=== PATIENT | male | born 1930 | race Caucasian/White ===

== ENCOUNTER 2018-12-25 00:19 | Emergency (ER) | payer MEDICARE, BC ==
[2018-12-25] MEDS ORDERED: Bacitracin Oint 1 GM U/D Packet TOP ONE (00:53)
[2018-12-25] MEDS ORDERED: Lidocaine 1% with EPINEPHrine 1:100,000 50 ML MDV INFILT ONE (00:53)
--- NOTE | 2018-12-25 01:04 | EDM.PDOC ---
ED HPI GENERAL MEDICAL PROBLEM - General Chief Complaint: Head Injury Stated Complaint: FELL,LACERATION TO HEAD Time Seen by Provider: 12/25/18 00:53 Source of Information: Reports: Patient, Family History Limitations: Reports: No Limitations - History of Present Illness INITIAL COMMENTS - FREE TEXT/NARRATIVE: 88-year-old male was on the toilet at around 10:30 PM, 3 hours ago, when he was straining and then felt uncomfortable and lightheaded. He then felt "horrible", very nauseated and then passed out. He hit his right eyebrow on the floor sustaining a laceration. He woke up several minutes later, lightheaded and nauseated but fairly rapidly resolved. He did not have chest pain, shortness of breath, palpitations, and has no current symptoms. His vitals are stable. 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 Pain Score (Numeric/FACES): 1 - Related Data Allergies Allergy/AdvReac Type Severity Reaction Status Date / Time No Known Allergies Allergy Verified 12/25/18 00:22 Home Meds: Home Meds Aspirin 81 mg PO DAILY 12/25/18 [History] Ibuprofen 200 mg PO BID 12/25/18 [History] atorvaSTATin [Lipitor] 40 mg PO BEDTIME 12/25/18 [History] Past Medical History HEENT History: Reports: Cataract, Hard of Hearing, Impaired Vision Cardiovascular History: Reports: Afib, High Cholesterol Gastrointestinal History: Reports: Other (See Below) Other Gastrointestinal History: acid reflux Genitourinary History: Reports: BPH Musculoskeletal History: Reports: Arthritis Oncologic (Cancer) History: Reports: Squamous Cell Carcinoma Dermatologic History: Reports: Other (See Below) Other Dermatologic History: bruises easily - Infectious Disease History Infectious Disease History: Reports: Chicken Pox, Measles, Mumps, Rubella, Shingles - Past Surgical History HEENT Surgical History: Reports: Adenoidectomy, Cataract Surgery, Tonsillectomy GI Surgical History: Reports: Cholecystectomy, Colonoscopy, Hernia Repair/Other Neurological Surgical History: Reports: Laminectomy, Other (See Below) Other Neurological Surgeries/Procedures: 4th and 5th lumbar Social & Family History - Tobacco Use Smoking Status *Q: Never Smoker - Caffeine Use Caffeine Use: Reports: Coffee - Recreational Drug Use Recreational Drug Use: No ED ROS GENERAL - Review of Systems Review Of Systems: See Below Constitutional: Denies: Fever, Chills HEENT: Denies: Vision Change Respiratory: Denies: Shortness of Breath Cardiovascular: Denies: Chest Pain GI/Abdominal: Denies: Abdominal Pain, Nausea, Vomiting Neurological: Denies: Headache Psychiatric: Reports: No Symptoms ED EXAM, HEAD INJURY - Physical Exam Exam: See Below Exam Limited By: No Limitations General Appearance: Alert, No Apparent Distress Head: Other (Patient has a 2-1/2 cm transverse laceration, somewhat irregular above the right eyebrow) Eyes: Bilateral Eye: EOMI Neck: Non-Tender Respiratory: No Respiratory Distress Cardiovascular: Regular Rate, Rhythm, Extra Beats Extremities: Normal Inspection. No: Pedal Edema Neurologic: Normal Mood/Affect, Oriented x 3 - [place] Coma Score Best Eye Response (Jody): (4) Open Spontaneously Best Verbal Response ([place]): (5) Oriented Best Motor Response (Jody): (6) Obeys Commands Course - Vital Signs Last Recorded V/S: Last Vital Signs Temp 95.4 F 12/25/18 00:26 Pulse 61 12/25/18 00:26 Resp 15 12/25/18 00:26 BP 139/59 L 12/25/18 00:26 Pulse Ox 95 12/25/18 00:26 - Orders/Labs/Meds Meds: Medications Discontinued Medications Generic Name Dose Route Start Last Admin Trade Name Laverne PRN Reason Stop Dose Admin Bacitracin 1 dose 12/25/18 00:53 12/25/18 01:17 Bacitracin Oint 1 Gm TOP 12/25/18 00:54 1 dose ONETIME ONE Administration Lidocaine/Epinephrine 30 ml 12/25/18 00:53 12/25/18 01:15 Xylocaine 1% With Epinephrine 1:100,000 INFILT 12/25/18 00:54 30 ml ONETIME ONE Administration - Re-Assessments/Exams Free Text/Narrative Re-Assessment/Exam: 12/25/18 01:20 The wound was anesthetized with 1% lidocaine with epinephrine, cleansed thoroughly with saline, and 5 4-0 Ethilon sutures were used to close the wound. A pressure dressing was applied. His vitals stayed normal throughout. Patient family were comfortable with no further workup at this time, if his symptoms recur he'll return for further testing. Otherwise to sutures can be removed in 7 days, he should keep the wound clean while healing and recheck sooner if concerns of infection or not healing satisfactorily. Departure - Departure Time of Disposition: :34 Disposition: Home, Self-Care 01 Clinical Impression: Syncope, vasovagal Laceration of eyebrow, right Qualifiers: Encounter type: initial encounter Qualified Code(s): S01.111A - Laceration without foreign body of right eyelid and periocular area, initial encounter - Discharge Information Instructions: Laceration Care, Adult, Syncope, [id number] Referrals: PCP,None [Primary Care Provider] - Forms: ED Department Discharge Care Plan Goals: Increase activity and diet as tolerated. Keep dressing on overnight, then keep wound clean while healing. Intermittent icing over the next 24-48 hours will help swelling. Return anytime if concerns such as persistent headache, confusion , or unexplained numbness or weakness. Sutures can be removed next Thursday, recheck sooner if concerns of infection or not healing satisfactorily.
== END 2018-12-25 01:30 | disposition home or self-care (01) ==
LOC: JP.ED 00:19
DX: R55 Syncope and collapse (principal); S01.111A Laceration without foreign body of right eyelid and periocular area, initial encounter; I48.91 Unspecified atrial fibrillation; E78.00 Pure hypercholesterolemia, unspecified; M19.90 Unspecified osteoarthritis, unspecified site; Z79.82 Long term (current) use of aspirin; Z79.899 Other long term (current) drug therapy; W19.XXXA Unspecified fall, initial encounter; W22.8XXA Striking against or struck by other objects, initial encounter
CPT/HCPCS: 12011; 99282-25; 99283

== ENCOUNTER 2020-06-01 09:55 | Emergency (ER) | payer MEDICARE, BC ==
--- NOTE | 2020-06-01 10:55 | EDM.PDOC ---
ED HPI GENERAL MEDICAL PROBLEM - General Chief Complaint: Gastrointestinal Problem Stated Complaint: LRQ ABDOMINAL PAIN Time Seen by Provider: 06/01/20 10:38 Source of Information: Reports: Patient, Family, RN Notes Reviewed History Limitations: Reports: No Limitations - History of Present Illness INITIAL COMMENTS - FREE TEXT/NARRATIVE: 89-year-old gentleman presents emergency department today complaint of abdominal pain, he was lifting some 50 pound bags of salt yesterday sudden onset of pain in his right groin. The pain has subsided somewhat he is pain-free when he lays still however with movement the pain will come back - Related Data Allergies Allergy/AdvReac Type Severity Reaction Status Date / Time No Known Allergies Allergy Verified 06/01/20 12:00 Home Meds: Home Meds Ibuprofen 200 mg PO BID 12/25/18 [History] atorvaSTATin [Lipitor] 40 mg PO BEDTIME 12/25/18 [History] RABEprazole Sodium [Aciphex] 1 tab PO DAILY 06/01/20 [History] Past Medical History HEENT History: Reports: Cataract, Hard of Hearing, Impaired Vision Cardiovascular History: Reports: Afib, High Cholesterol Gastrointestinal History: Reports: Other (See Below) Other Gastrointestinal History: acid reflux Genitourinary History: Reports: BPH Musculoskeletal History: Reports: Arthritis Oncologic (Cancer) History: Reports: Squamous Cell Carcinoma Dermatologic History: Reports: Other (See Below) Other Dermatologic History: bruises easily - Infectious Disease History Infectious Disease History: Reports: Chicken Pox, Measles, Mumps, Rubella, Shingles - Past Surgical History HEENT Surgical History: Reports: Adenoidectomy, Cataract Surgery, Tonsillectomy GI Surgical History: Reports: Cholecystectomy, Colonoscopy, Hernia Repair/Other Neurological Surgical History: Reports: Laminectomy, Other (See Below) Other Neurological Surgeries/Procedures: 4th and 5th lumbar Social & Family History - Tobacco Use Tobacco Use Status *Q: Former Tobacco User Used Tobacco, but Quit: Yes Month/Year Tobacco Last Used: Apr 1973 - Caffeine Use Caffeine Use: Reports: Coffee ED ROS GENERAL - Review of Systems Review Of Systems: See Below Constitutional: Reports: No Symptoms Respiratory: Reports: No Symptoms Cardiovascular: Reports: No Symptoms GI/Abdominal: Reports: Abdominal Pain, Flatus. Denies: Constipation, Diarrhea, Nausea, Vomiting : Reports: No Symptoms ED EXAM, GI/ABD - Physical Exam Exam: See Below Exam Limited By: No Limitations General Appearance: Alert, WD/WN, No Apparent Distress Respiratory/Chest: No Respiratory Distress GI/Abdominal Exam: Normal Bowel Sounds, Soft, No Distention, No Mass, Tender (Right inguinal region), Hernia (I cannot reduce any hernia or feel a palpable mass) Course - Vital Signs Last Recorded V/S: Last Vital Signs Temp 96.7 F L 06/01/20 10:19 Pulse 65 06/01/20 10:19 Resp 20 06/01/20 10:19 BP 127/72 06/01/20 10:19 Pulse Ox 98 06/01/20 10:19 Departure - Departure Time of Disposition: 12:23 Disposition: Home, Self-Care 01 Condition: Fair Clinical Impression: Right groin pain - Discharge Information Instructions: Abdominal Pain, Adult, [id number] Referrals: PCP,None [Primary Care Provider] - Forms: ED Department Discharge Additional Instructions: Recommend using Tylenol Motrin as needed for pain control, follow-up with your primary care in the next 3 to 5 days for reevaluation call or return to the emergency department worsening of symptoms Sepsis Event Note (ED) - Evaluation Sepsis Screening Result: No Definite Risk - Focused Exam Vital Signs: Vital Signs Temp Pulse Resp BP Pulse Ox 06/01/20 10:19 96.7 F L 65 20 127/72 98 - Assessment/Plan Plan: Assessment Acuity = acute Site and laterality = right groin pain Etiology = trauma Manifestations = none Location of injury = Home Lab values = ultrasound reveals no inguinal hernia Plan I did review ultrasound results with him he is had good improvement of his pain when lying in bed plan is to follow-up with his primary care in a couple of days for reevaluation Tylenol Motrin as needed for pain control This note was dictated using [employer] recognition software please call with any questions on syntax or grammar.
--- NOTE | 2020-06-01 11:57 | US ---
Pelvis Non OB Ltd CLINICAL HISTORY: Right inguinal pain FINDINGS: Real-time images of the right inguinal region show no mass. Fascial planes are well demarcated. There is no evidence of inguinal hernia with or without Valsalva IMPRESSION: No evidence of inguinal hernia No inguinal mass or adenopathy seen
== END 2020-06-01 12:38 | disposition home or self-care (01) ==
LOC: JP.ED 09:55
DX: R10.31 Right lower quadrant pain (principal); I48.91 Unspecified atrial fibrillation; E78.00 Pure hypercholesterolemia, unspecified; K21.9 Gastro-esophageal reflux disease without esophagitis; Z87.891 Personal history of nicotine dependence; Z98.890 Other specified postprocedural states; Z79.899 Other long term (current) drug therapy
CPT/HCPCS: 76857; 76857-26; 99282; 99283-25

== ENCOUNTER 2020-06-08 06:19 | Emergency (ER) | payer MEDICARE, BC ==
--- NOTE | 2020-06-08 06:46 | EDM.PDOC ---
ED HPI GENERAL MEDICAL PROBLEM - General Chief Complaint: Respiratory Problem Stated Complaint: COUGH,S.O.B. Time Seen by Provider: 06/08/20 06:35 Source of Information: Reports: Patient, Family History Limitations: Reports: No Limitations - History of Present Illness INITIAL COMMENTS - FREE TEXT/NARRATIVE: Parveen is an 89-year-old male presenting to the ED for evaluation of increased cough, shortness of breath, and weakness. The patient was in his usual state of health until Thursday when he started to develop a throat, rhinorrhea, nasal congestion, and a cough. He has had some itching of the eyes and has been sneezing as well. Denies any fever or chills. Family thought he just had a cold, however, over the course of the week he has had a productive cough producing milky yellow sputum. The patient is already had his 2 shot series for COVID-19 which completed in mid May. - Related Data Allergies Allergy/AdvReac Type Severity Reaction Status Date / Time No Known Allergies Allergy Verified 06/08/20 06:29 Home Meds: Home Meds Ibuprofen 200 mg PO BID 12/25/18 [History] atorvaSTATin [Lipitor] 40 mg PO BEDTIME 12/25/18 [History] RABEprazole Sodium [Aciphex] 1 tab PO DAILY 06/01/20 [History] Past Medical History HEENT History: Reports: Cataract, Hard of Hearing, Impaired Vision Cardiovascular History: Reports: Afib, High Cholesterol Gastrointestinal History: Reports: Other (See Below) Other Gastrointestinal History: acid reflux Genitourinary History: Reports: BPH Musculoskeletal History: Reports: Arthritis Oncologic (Cancer) History: Reports: Squamous Cell Carcinoma Dermatologic History: Reports: Other (See Below) Other Dermatologic History: bruises easily - Infectious Disease History Infectious Disease History: Reports: Chicken Pox, Measles, Mumps, Rubella, Shingles - Past Surgical History HEENT Surgical History: Reports: Adenoidectomy, Cataract Surgery, Tonsillectomy GI Surgical History: Reports: Cholecystectomy, Colonoscopy, Hernia Repair/Other Neurological Surgical History: Reports: Laminectomy, Other (See Below) Other Neurological Surgeries/Procedures: 4th and 5th lumbar Social & Family History - Tobacco Use Tobacco Use Status *Q: Never Tobacco User - Caffeine Use Caffeine Use: Reports: Coffee Caffeine Use Comment: 3/4 of a cup per day - Recreational Drug Use Recreational Drug Use: No ED ROS GENERAL - Review of Systems Review Of Systems: See Below Constitutional: Reports: No Symptoms, Weakness (Creasing generalized weakness) HEENT: Reports: Rhinitis Respiratory: Reports: Shortness of Breath, Cough Cardiovascular: Reports: No Symptoms Endocrine: Reports: Fatigue GI/Abdominal: Reports: No Symptoms : Reports: No Symptoms Musculoskeletal: Reports: No Symptoms Skin: Reports: No Symptoms Neurological: Reports: No Symptoms Psychiatric: Reports: No Symptoms Hematologic/Lymphatic: Reports: No Symptoms Immunologic: Reports: Other (Possibly as the patient has had itchy eyes, sneezing, increased rhinorrhea and cough.) ED EXAM, GENERAL - Physical Exam Exam: See Below Exam Limited By: No Limitations General Appearance: Alert, No Apparent Distress Eye Exam: Bilateral Eye: EOMI, PERRL Nose: Nasal Swelling, Nasal Drainage (Thick white drainage) Throat/Mouth: Normal Inspection, Normal Lips, Normal Oropharynx, Normal Voice Head: Atraumatic, Normocephalic Neck: Normal Inspection, Supple, Non-Tender, Full Range of Motion. No: Lymphadenopathy (R), Lymphadenopathy (L) Respiratory/Chest: No Respiratory Distress, Lungs Clear, Normal Breath Sounds, No Accessory Muscle Use. No: Rales, Rhonchi, Wheezing Cardiovascular: Normal Peripheral Pulses, Regular Rate, Rhythm, No Murmur Peripheral Pulses: 2+: Radial (L), Radial (R) GI/Abdominal: Normal Bowel Sounds, Soft, Non-Tender Back Exam: Normal Inspection, Full Range of Motion Extremities: Normal Inspection, Normal Range of Motion Neurological: Alert, Oriented, Normal Cognition, No Motor/Sensory Deficits Psychiatric: Normal Affect, Normal Mood Skin Exam: Warm, Dry, Intact, Normal Color Lymphatic: No Adenopathy Course - Vital Signs Last Recorded V/S: Last Vital Signs Temp 36.3 C 06/08/20 06:34 Pulse 86 06/08/20 06:34 Resp 20 06/08/20 06:34 BP 154/70 H 06/08/20 06:34 Pulse Ox 96 06/08/20 06:34 - Orders/Labs/Meds Orders: Active Orders 24 hr Category Date Time Status Chest 2V [CR] Stat Exams 06/08/20 06:36 Ordered C-REACTIVE PROTEIN [CHEM] Stat Lab 06/08/20 06:36 Ordered Labs: Laboratory Tests 06/08/20 Range/Units 06:45 WBC 9.2 (4.5-11.0) K/uL RBC 3.72 L (4.30-5.90) M/uL Hgb 11.8 L (12.0-15.0) g/dL Hct 35.6 L (40.0-54.0) % MCV 96 (80-98) fL MCH 32 H (27-31) pg MCHC 33 (32-36) % Plt Count 156 (150-400) K/uL Neut % (Auto) 77 H (36-66) % Lymph % (Auto) 14 L (24-44) % Otero % (Auto) 8 H (2-6) % Eos % (Auto) 1 L (2-4) % Baso % (Auto) 0 (0-1) % - Re-Assessments/Exams Free Text/Narrative Re-Assessment/Exam: 06/08/20 06:52 CBC shows a normal leukocyte count. C-reactive protein is normal as well. 06/08/20 06:53 chest 2 view x-ray shows fluffy infiltrates in bilateral lung joseph consistent with a bronchopneumonia. We will put the patient on azithromycin Z-Babak to treat this. He may take a decongestant of choice to help expectorate and bring up the mucus. At this time he suitable for discharge home in satisfactory condition. Indications to return to the ED were discussed. All questions were answered prior to discharge. Departure - Departure Time of Disposition: 06:59 Disposition: Home, Self-Care 01 Clinical Impression: Acute bronchopneumonia - Discharge Information *PRESCRIPTION DRUG MONITORING PROGRAM REVIEWED*: Not Applicable *COPY OF PRESCRIPTION DRUG MONITORING REPORT IN PATIENT BRENDA: Not Applicable Instructions: Community-Acquired Pneumonia, Adult, [id number] Referrals: PCP,None [Primary Care Provider] - Forms: ED Department Discharge Care Plan Goals: Your work-up is demonstrated that you have a developing pneumonia and likely bronchitis called bronchopneumonia. The plan is to start you on azithromycin Z- Babak. Please take as directed. You may also use a decongestant of choice preferably with an expectorant so that you are able to cough up the mucus. You may take Tylenol or ibuprofen for body aches and for your temperature. I anticipate that this will start to get better within the next 2 to 3 days. Follow-up with your primary care provider if not improving after 4 days. Turn to the ED should you develop any worsening of your shortness of breath. Sepsis Event Note (ED) - Evaluation Sepsis Screening Result: No Definite Risk - Focused Exam Vital Signs: Vital Signs Temp Pulse Resp BP Pulse Ox 06/08/20 06:34 36.3 C 86 20 154/70 H 96 - Problem List & Annotations (1) Acute bronchopneumonia SNOMED Code(s): 081203943 Code(s): J18.0 - BRONCHOPNEUMONIA, UNSPECIFIED ORGANISM Status: Acute Priority: Medium Current Visit: Yes - Problem List Review Problem List Initiated/Reviewed/Updated: Yes - My Orders Last 24 Hours: My Active Orders 06/08/20 06:36 Chest 2V [CR] Stat C-REACTIVE PROTEIN [CHEM] Stat - Assessment/Plan Last 24 Hours: My Active Orders 06/08/20 06:36 Chest 2V [CR] Stat C-REACTIVE PROTEIN [CHEM] Stat
--- NOTE | 2020-06-08 09:53 | CR ---
CHEST: 2 view CLINICAL HISTORY:Cough COMPARISON:2007 FINDINGS: Heart size is mildly enlarged. Pulmonary vascularity is normal. There is ill-defined infiltrate diffusely and bilaterally. There are atherosclerotic changes in the aorta. . There are been previous thoracic vertebroplasties. IMPRESSION: Mild diffuse bilateral infiltrate suspect for pneumonitis Cardiomegaly
== END 2020-06-08 07:13 | disposition home or self-care (01) ==
LOC: JP.ED 06:19
DX: J18.0 Bronchopneumonia, unspecified organism (principal); I48.91 Unspecified atrial fibrillation; E78.00 Pure hypercholesterolemia, unspecified; K21.9 Gastro-esophageal reflux disease without esophagitis; Z79.899 Other long term (current) drug therapy
CPT/HCPCS: 36415; 71046; 71046-26; 85025; 86140; 99285-25